=== PATIENT | male | born 1955 | race Caucasian/White ===

== ENCOUNTER 2017-02-24 12:32 | Inpatient (IN) | payer MEDICAID ==
[~2017-02-24] VITALS: Ht 180.3 cm; Wt 78.0 kg
[2017-02-24] MEDS ORDERED: Nitroglycerin Subl 0.4mg tab SL PRN ×2 (13:00→17:45)
[2017-02-24] MEDS ORDERED: Aspirin Baby 81mg ORAL ONE (13:00)
[2017-02-24 13:16] LABS: BASOPHILS % (AUTO) 1.1 % (0.0-2.0); LYMPHOCYTES % (AUTO) 15.9 % (20.0-45.0); MEAN CORPUSCULAR HEMOGLOBIN 33.6 PG (27.0-31.0); MEAN CORPUSCULAR HGB CONC 33.1 G/DL (32.0-36.0); MEAN CORPUSCULAR VOLUME 102 FL (80-99); MEAN PLATELET VOLUME 7.2 FL (6.5-10.1); MONOCYTES % (AUTO) 6.4 % (1.0-10.0); NEUTROPHILS % (AUTO) 73.5 % (45.0-75.0); PLATELET COUNT 235 K/UL (150-450); RED BLOOD COUNT 4.83 M/UL (4.70-6.10); RED CELL DISTRIBUTION WIDTH 11.9 % (11.6-14.8); WHITE BLOOD COUNT 6.7 K/UL (4.8-10.8)
[2017-02-24] MEDS ORDERED: VALIUM2 MG ORAL (13:16)
[2017-02-24] MEDS ORDERED: VICODIN 5-3001 EACH ORAL (13:16)
[2017-02-24 13:25] LABS: INR 0.9 (0.9-1.1); PROTHROMBIN TIME 9.3 SEC (9.30-11.50)
[2017-02-24 13:31] LABS: TROPONIN I < 0.30 ng/mL (<=0.30)
[2017-02-24 13:35] LABS: ALANINE AMINOTRANSFERASE 18 U/L (3-41); ALBUMIN/GLOBULIN RATIO 1.8 (1.0-2.7); ANION GAP 11 (5-15); ASPARTATE AMINO TRANSFERASE 21 U/L (5-40); CALCIUM 9.7 mg/dL (8.6-10.2); CARBON DIOXIDE 27 mEQ/L (20-30); CHLORIDE 101 mEQ/L (98-107); GLOMERULAR FILTRATION RATE > 60 mL/min (>60); HEMOLYSIS 7; POTASSIUM 5.7 mEQ/L (3.4-4.9); SODIUM 139 mEQ/L (135-145); TOTAL PROTEIN 6.6 g/dL (6.6-8.7)
[2017-02-24 13:46] LABS: CKMB 1.7 ng/mL (< 6.7)
[2017-02-24 14:00] VITALS: BP 142/88
--- NOTE | 2017-02-24 15:01 | Emergency Room Report ---
History of Present Illness General Chief Complaint: Chest Pain Source: Patient Present Illness HPI Patient 61-year-old male presented after increased chest tightness. This began approximately one hour prior to arrival to the hospital. Patient stated that he had prior history of hypertension and as well as smoke cigarettes. The patient denies recent drug use. He states that he had onset of pain during rest the pain was described as a squeezing sensation to the center of his chest. The patient had not been vomiting or having any productive cough. He denies any leg pain or swelling. He is unsure of his blood pressure medications. Allergies: Coded Allergies: No Known Allergies (Unverified , 02/24/17) Patient History Past Medical History: see triage record Reviewed Nursing Documentation: PMH: Agreed, PSxH: Agreed Nursing Documentation-PMH Past Medical History: No History, Except For Hx Hypertension: Yes Review of Systems All Other Systems: negative except mentioned in HPI Physical Exam Vital Signs Date Time Temp Pulse Resp B/P (MAP) Pulse Ox O2 Delivery O2 Flow Rate FiO2 02/24/17 12:34 88 18 149/65 98 Room Air Sp02 EP Interpretation: reviewed, normal General Appearance: normal inspection, well appearing, no apparent distress, alert, GCS 15 Head: atraumatic ENT: normal ENT inspection, hearing grossly normal, normal voice Neck: normal inspection, full range of motion, supple, no bony tend Respiratory: normal inspection, lungs clear, normal breath sounds, no respiratory distress, no retraction, no wheezing Cardiovascular #1: regular rate, rhythm, no edema Gastrointestinal: normal inspection, normal bowel sounds, non tender, soft, no guarding, no hernia Genitourinary: no CVA tenderness Musculoskeletal: normal inspection, back normal, normal range of motion Neurologic: normal inspection, alert, oriented x3, responsive, pipe fitter gas pipe III-XII nml as tested, motor strength/tone normal, speech normal Psychiatric: normal inspection, judgement/insight normal, mood/affect normal Skin: normal inspection, normal color, no rash Medical Decision Making Diagnostic Impression: Primary Impression: Chest pain Additional Impression: ACS (acute coronary syndrome) ER Course Patient presented for chest pain. Differential diagnosis included but was not limited to acute coronary syndrome, pulmonary embolism, pneumonia, aortic dissection, shingles, pneumothorax, aortic dissection, esophageal rupture, pericarditis. Because of complexity of patient's case laboratory testing and imaging studies were ordered.Laboratory studies were notable for minimally elevated potassium. This is likely due to lab error. The patient was noted to have initially negative troponin. Patient was noted to be pain-free after aspirin and nitroglycerin. Patient was discussed with Dr. Bob Labs Test 02/24/17 13:00 White Blood Count 6.7 K/UL (4.8-10.8) Red Blood Count 4.83 M/UL (4.70-6.10) Hemoglobin 16.2 G/DL (14.2-18.0) Hematocrit 49.1 % (42.0-52.0) Mean Corpuscular Volume 102 FL (80-99) Mean Corpuscular Hemoglobin 33.6 PG (27.0-31.0) Mean Corpuscular Hemoglobin Concent 33.1 G/DL (32.0-36.0) Red Cell Distribution Width 11.9 % (11.6-14.8) Platelet Count 235 K/UL (150-450) Mean Platelet Volume 7.2 FL (6.5-10.1) Neutrophils (%) (Auto) 73.5 % (45.0-75.0) Lymphocytes (%) (Auto) 15.9 % (20.0-45.0) Monocytes (%) (Auto) 6.4 % (1.0-10.0) Eosinophils (%) (Auto) 3.0 % (0.0-3.0) Basophils (%) (Auto) 1.1 % (0.0-2.0) Prothrombin Time 9.3 SEC (9.30-11.50) Prothromb Time International Ratio 0.9 (0.9-1.1) Activated Partial Thromboplast Time 26 SEC (23-33) Sodium Level 139 mEQ/L (135-145) Potassium Level 5.7 mEQ/L (3.4-4.9) Chloride Level 101 mEQ/L (98-107) Carbon Dioxide Level 27 mEQ/L (20-30) Anion Gap 11 (5-15) Blood Urea Nitrogen 14 mg/dL (7-23) Creatinine 1.0 mg/dL (0.7-1.2) Estimat Glomerular Filtration Rate > 60 mL/min (>60) Glucose Level 108 mg/dL (74-106) Calcium Level 9.7 mg/dL (8.6-10.2) Total Bilirubin 0.3 mg/dL (0.0-1.2) Aspartate Amino Transf (AST/SGOT) 21 U/L (5-40) Alanine Aminotransferase (ALT/SGPT) 18 U/L (3-41) Alkaline Phosphatase 69 U/L (40-129) Total Creatine Kinase 70 U/L (38-174) Creatine Kinase MB 1.7 ng/mL (< 6.7) Creatine Kinase MB Relative Index 2.4 Troponin I < 0.30 ng/mL (<=0.30) Pro-B-Type Natriuretic Peptide 25 pg/mL (0-125) Total Protein 6.6 g/dL (6.6-8.7) Albumin 4.3 g/dL (3.5-5.2) Globulin 2.3 g/dL Albumin/Globulin Ratio 1.8 (1.0-2.7) Serum Alcohol < 10 mg/dL EKG Diagnostic Results Rate: normal Rhythm: NSR ST Segments: no acute changes ASA given to the pt in ED: Yes Rhythm Strip Diag. Results EP Interpretation: yes Rhythm: NSR, no PVC's, no ectopy Last Vital Signs Date Time Temp Pulse Resp B/P (MAP) Pulse Ox O2 Delivery O2 Flow Rate FiO2 02/24/17 13:13 94 16 02/24/17 13:07 144/85 02/24/17 12:34 98 Room Air Status: improved Disposition: XFER [facility] Condition: Stable Referrals: PREFERRED [facility],REFERRING (PCP) Ilan Pablo Feb 24, 2017 15:01
[2017-02-24 16:00] VITALS: BP 142/86
[2017-02-24] MEDS ORDERED: htn med (16:40)
[2017-02-24 17:07] VITALS: BP 147/93
[2017-02-24 17:31] LABS: KETONES,URINE NEGATIVE (NEGATIVE); LEUKOCYTE ESTERASE ,URINE NEGATIVE (NEGATIVE); NITRITE,URINE NEGATIVE (NEGATIVE); PH,URINE 8 (4.5-8.0); PROTEIN,URINE NEGATIVE (NEGATIVE); UROBILINOGEN,URINE NORMAL MG/DL (0.0-1.0)
[2017-02-24] MEDS ORDERED: Enalaprilat 2.5mg/2ml Inj IV PRN (17:45)
[2017-02-24] MEDS ORDERED: Diltiazem 25mg/5ml IV PRN (17:45)
[2017-02-24] MEDS ORDERED: Sodium Polystyrene Sulfonate 15gm Powder ORAL ONE (17:45)
[2017-02-24] MEDS ORDERED: Ketorolac 30mg Inj IV PRN (17:45)
[2017-02-24] MEDS ORDERED: Morphine Sulfate 2mg/ml Inj IVP PRN (17:45)
[2017-02-24] MEDS ORDERED: DuoNeb 0.5-3(2.5)mg/3ml neb HHN PRN (17:45)
[2017-02-24] MEDS ORDERED: Miralax 17gm pkt ORAL PRN (17:45)
[2017-02-24 17:57] LABS: APPEARANCE,URINE CLEAR
[2017-02-24 20:14] VITALS: BP 145/93
[2017-02-24 20:48] LABS: TROPONIN I < 0.30 ng/mL (<=0.30)
[2017-02-24] MEDS: NovoLOG Insulin Flexpen SUBQ SCH (22:00)
[2017-02-24] MEDS: Heparin 5000 units/ml inj SUBQ SCH (22:00)
[2017-02-25] VITALS (7 sets, daily range): BP systolic 121–138; BP diastolic 71–96
[2017-02-25] MEDS: Heparin 5000 units/ml inj SUBQ SCH ×2 (05:56→13:34)
[2017-02-25] MEDS: NovoLOG Insulin Flexpen SUBQ SCH ×3 (06:11→16:30)
[2017-02-25 07:36] LABS: BASOPHILS % (AUTO) 1.1 % (0.0-2.0); EOSINOPHILS % (AUTO) 4.2 % (0.0-3.0); LYMPHOCYTES % (AUTO) 24.4 % (20.0-45.0); MEAN CORPUSCULAR HGB CONC 33.6 G/DL (32.0-36.0); MEAN CORPUSCULAR VOLUME 101 FL (80-99); MEAN PLATELET VOLUME 6.7 FL (6.5-10.1); MONOCYTES % (AUTO) 7.8 % (1.0-10.0); NEUTROPHILS % (AUTO) 62.5 % (45.0-75.0); PLATELET COUNT 200 K/UL (150-450); RED CELL DISTRIBUTION WIDTH 11.8 % (11.6-14.8); WHITE BLOOD COUNT 5.1 K/UL (4.8-10.8)
[2017-02-25 07:50] LABS: INR 0.9 (0.9-1.1); PROTHROMBIN TIME 9.4 SEC (9.30-11.50)
[2017-02-25 07:57] LABS: TROPONIN I < 0.30 ng/mL (<=0.30)
[2017-02-25 08:00] LABS: CHOLESTEROL/HDL RATIO 3.3 (3.3-4.4); CRP QUANT 2.4 mg/dL (< 0.5)
[2017-02-25 08:04] LABS: THYROID STIMULATING HORMONE 1.57 uIU/mL (0.300-4.500)
[2017-02-25] MEDS ORDERED: Aspirin Baby 81mg ORAL SCH (09:00)
--- NOTE | 2017-02-25 11:19 | Diagnostic Imaging Report ---
Indication: SOB Technique: One view of the chest Comparison: none Findings: Lungs and pleural spaces are clear. Heart size is normal. Impression: No acute process
[2017-02-25 11:54] LABS: ANION GAP 17 (5-15); CALCIUM 8.8 mg/dL (8.6-10.2); CARBON DIOXIDE 21 mEQ/L (20-30); CHLORIDE 103 mEQ/L (98-107); CREATININE 0.9 mg/dL (0.7-1.2); GLOMERULAR FILTRATION RATE > 60 mL/min (>60); HEMOLYSIS 9; SODIUM 141 mEQ/L (135-145)
--- NOTE | 2017-02-25 12:42 | History and Physical ---
History of Present Illness General Date patient seen: Feb 24, 2017 Reason for Hospitalization: Chest Pain Present Illness HPI 61-year-old male with hx of HTN, smoking presented to [facility] with CC of increased chest tightness. This began approximately one hour prior to arrival to the hospital. He states that he had onset of pain during rest the pain was described as a squeezing sensation to the center of his chest. He denies any leg pain or swelling. He is unsure of his blood pressure medications. His is admitted to telemetry for further evaluation. Allergies: Coded Allergies: No Known Allergies (Unverified , 02/24/17) Medication History Scheduled PRN Diazepam* (Valium*), Unknown Dose ORAL TID PRN for ANXIETY, (Reported) Hydrocodone Bit/Acetaminophen (Vicodin 5-300 Mg Tablet), Unknown Dose ORAL Q4H PRN for For Pain, (Reported) Miscellaneous Medications [htn med ], (Reported) Patient History Healthcare decision maker N Resuscitation status Full Code Advanced Directive on File Past Medical/Surgical History Past Medical/Surgical History: (1) History of smoking Review of Systems Constitutional: Reports: no symptoms Eye: Reports: no symptoms Physical Exam General Appearance: WD/WN, alert Lines, tubes and drains: peripheral HEENT: normocephalic, atraumatic Neck: non-tender, supple Respiratory/Chest: chest wall non-tender, normal breath sounds Cardiovascular/Chest: normal peripheral pulses, normal rate Last 24 Hour Vital Signs Date Time Temp Pulse Resp B/P (MAP) Pulse Ox O2 Delivery O2 Flow Rate FiO2 02/25/17 11:39 97.3 73 18 138/90 97 Room Air 02/25/17 08:00 76 02/25/17 08:00 97.0 78 18 121/71 95 Room Air 02/25/17 05:14 97.5 79 20 131/94 99 Room Air 02/25/17 05:13 97.5 79 20 131/94 99 Room Air 02/25/17 04:00 81 02/25/17 04:00 97.5 79 20 131/94 99 Room Air 02/25/17 00:00 97.9 81 20 136/96 95 Room Air 02/25/17 00:00 84 02/24/17 20:14 97.9 82 20 145/93 95 Room Air 02/24/17 20:09 94 02/24/17 17:07 97.5 86 22 147/93 98 Room Air 02/24/17 16:55 81 19 144/79 98 Room Air 02/24/17 16:00 16 142/86 98 Room Air 02/24/17 14:00 16 142/88 98 Room Air 02/24/17 13:13 94 16 02/24/17 13:07 144/85 Laboratory Tests Test 02/24/17 13:00 02/24/17 16:50 02/24/17 20:25 02/25/17 06:40 White Blood Count 6.7 K/UL (4.8-10.8) 5.1 K/UL (4.8-10.8) Red Blood Count 4.83 M/UL (4.70-6.10) 4.40 M/UL (4.70-6.10) L Hemoglobin 16.2 G/DL (14.2-18.0) 14.9 G/DL (14.2-18.0) Hematocrit 49.1 % (42.0-52.0) 44.4 % (42.0-52.0) Mean Corpuscular Volume 102 FL (80-99) H 101 FL (80-99) H Mean Corpuscular Hemoglobin 33.6 PG (27.0-31.0) H 34.0 PG (27.0-31.0) H Mean Corpuscular Hemoglobin Concent 33.1 G/DL (32.0-36.0) 33.6 G/DL (32.0-36.0) Red Cell Distribution Width 11.9 % (11.6-14.8) 11.8 % (11.6-14.8) Platelet Count 235 K/UL (150-450) 200 K/UL (150-450) Mean Platelet Volume 7.2 FL (6.5-10.1) 6.7 FL (6.5-10.1) Neutrophils (%) (Auto) 73.5 % (45.0-75.0) 62.5 % (45.0-75.0) Lymphocytes (%) (Auto) 15.9 % (20.0-45.0) L 24.4 % (20.0-45.0) Monocytes (%) (Auto) 6.4 % (1.0-10.0) 7.8 % (1.0-10.0) Eosinophils (%) (Auto) 3.0 % (0.0-3.0) 4.2 % (0.0-3.0) H Basophils (%) (Auto) 1.1 % (0.0-2.0) 1.1 % (0.0-2.0) Prothrombin Time 9.3 SEC (9.30-11.50) 9.4 SEC (9.30-11.50) Prothromb Time International Ratio 0.9 (0.9-1.1) 0.9 (0.9-1.1) Activated Partial Thromboplast Time 26 SEC (23-33) 28 SEC (23-33) Sodium Level 139 mEQ/L (135-145) 141 mEQ/L (135-145) Potassium Level 5.7 mEQ/L (3.4-4.9) H 4.0 mEQ/L (3.4-4.9) Chloride Level 101 mEQ/L (98-107) 103 mEQ/L (98-107) Carbon Dioxide Level 27 mEQ/L (20-30) 21 mEQ/L (20-30) Anion Gap 11 (5-15) 17 (5-15) H Blood Urea Nitrogen 14 mg/dL (7-23) 15 mg/dL (7-23) Creatinine 1.0 mg/dL (0.7-1.2) 0.9 mg/dL (0.7-1.2) Estimat Glomerular Filtration Rate > 60 mL/min (>60) > 60 mL/min (>60) Glucose Level 108 mg/dL (74-106) H 93 mg/dL (74-106) Calcium Level 9.7 mg/dL (8.6-10.2) 8.8 mg/dL (8.6-10.2) Total Bilirubin 0.3 mg/dL (0.0-1.2) Aspartate Amino Transf (AST/SGOT) 21 U/L (5-40) Alanine Aminotransferase (ALT/SGPT) 18 U/L (3-41) Alkaline Phosphatase 69 U/L (40-129) Total Creatine Kinase 70 U/L (38-174) Creatine Kinase MB 1.7 ng/mL (< 6.7) Creatine Kinase MB Relative Index 2.4 Troponin I < 0.30 ng/mL (<=0.30) < 0.30 ng/mL (<=0.30) < 0.30 ng/mL (<=0.30) Pro-B-Type Natriuretic Peptide 25 pg/mL (0-125) Total Protein 6.6 g/dL (6.6-8.7) Albumin 4.3 g/dL (3.5-5.2) Globulin 2.3 g/dL Albumin/Globulin Ratio 1.8 (1.0-2.7) Serum Alcohol < 10 mg/dL Urine Color Pale yellow Urine Appearance Clear Urine pH 8 (4.5-8.0) Urine Specific [place] 1.010 (1.005-1.035) Urine Protein Negative (NEGATIVE) Urine Glucose (UA) Negative (NEGATIVE) Urine Ketones Negative (NEGATIVE) Urine Occult Blood Negative (NEGATIVE) Urine Nitrite Negative (NEGATIVE) Urine Bilirubin Negative (NEGATIVE) Urine Urobilinogen Normal MG/DL (0.0-1.0) Urine Leukocyte Esterase Negative (NEGATIVE) Urine Opiates Screen Positive (NEGATIVE) H Urine Barbiturates Screen Negative (NEGATIVE) Phencyclidine (PCP) Screen Negative (NEGATIVE) Urine Amphetamines Screen Negative (NEGATIVE) Urine Benzodiazepines Screen Positive (NEGATIVE) H Urine Cocaine Screen Negative (NEGATIVE) Urine Marijuana (THC) Screen Negative (NEGATIVE) C-Reactive Protein, Quantitative 2.4 mg/dL (< 0.5) H Triglycerides Level 150 mg/dL (< 150) Cholesterol Level 188 mg/dL (< 200) LDL Cholesterol 101 mg/dL (60-99) H HDL Cholesterol 57 mg/dL (> 60) Cholesterol/HDL Ratio 3.3 (3.3-4.4) Thyroid Stimulating Hormone (TSH) 1.570 uIU/mL (0.300-4.500) Height (Feet): 5 Height (Inches): 11.00 Weight (Pounds): 172 Medications Current Medications Medications (Trade) Dose Ordered Sig/Kyle Route PRN Reason Start Time Stop Time Status Last Admin Dose Admin Acetaminophen (Tylenol) 650 mg Q4H PRN ORAL FEVER 02/24/17 17:45 03/26/17 17:44 Albuterol/ Ipratropium (DuoNeb 0.5-3(2.5)mg/3ml) 3 ml EVERY 4 HOURS PRN HHN Shortness of Breath 02/24/17 17:45 03/01/17 17:44 Aspirin (ASA) 162 mg DAILY ORAL 02/25/17 09:00 03/27/17 08:59 02/25/17 08:23 Dextrose (Dextrose 50%) STAT PRN IV Hypoglycemia 02/24/17 17:45 03/26/17 17:44 Diltiazem HCl (Cardizem) 10 mg EVERY HOUR PRN IV heart rate more than 120, 02/24/17 17:45 03/26/17 17:44 Enalaprilat (Vasotec) 2.5 mg EVERY 6 HOURS PRN IV sbp more than 160 02/24/17 17:45 03/26/17 17:44 Heparin Sodium (Porcine) (Heparin 5000 units/ml) 5,000 units EVERY 8 HOURS SUBQ 02/24/17 22:00 03/26/17 21:59 02/25/17 05:56 Insulin Aspart (NovoLOG) BEFORE MEALS AND HS SUBQ 02/24/17 21:00 03/26/17 20:59 Ketorolac Tromethamine (Toradol 30mg) 30 mg Q6HR PRN IV moderate pain ( 4-6) 02/24/17 17:45 03/01/17 17:44 Morphine Sulfate (Morphine Sulfate) 2 mg EVERY 4 HOURS PRN IVP severe Pain (Pain Scale 7-10) 02/24/17 17:45 03/03/17 17:44 Nitroglycerin (Ntg) 0.4 mg Q5M PRN SL Prn Chest Pain 02/24/17 13:00 03/26/17 12:59 02/24/17 13:07 Nitroglycerin (Ntg) 0.4 mg q 5 mins PRN SL Prn Chest Pain 02/24/17 17:45 03/26/17 17:44 Ondansetron HCl (Zofran) 4 mg Q6H PRN IVP Nausea & Vomiting 02/24/17 17:45 03/26/17 17:44 Polyethylene Glycol (Miralax) 17 gm DAILYPRN PRN ORAL Constipation 02/24/17 17:45 03/26/17 17:44 Temazepam (Restoril) 15 mg HSPRN PRN ORAL Insomnia 02/24/17 17:45 03/03/17 17:44 Assessment/Plan Problem List: (1) ACS (acute coronary syndrome) ICD Codes: I24.9 - Acute ischemic heart disease, unspecified SNOMED: 074677663 (2) GERD (gastroesophageal reflux disease) ICD Codes: K21.9 - Gastro-esophageal reflux disease without esophagitis SNOMED: 463598435 (3) Costochondritis ICD Codes: M94.0 - Chondrocostal junction syndrome [Tietze] SNOMED: 04392198 (4) History of smoking ICD Codes: Z87.891 - Personal history of nicotine dependence SNOMED: 06929137715190535 Assessment/Plan serial ekg, troponin, echo cardiology to see symptomatic treatment UNA YOUNG Feb 25, 2017 12:42
--- NOTE | 2017-02-25 12:49 | Diagnostic Imaging Report ---
APPROVED REPORT CPT Code: 70432 Present Symptoms Comments: Leg Pain Chest pain BILATERAL: Imaging reveals a patent deep venous system bilaterally. There is no evidence of thrombus within the femoral, popliteal or tibial segments. The greater saphenous veins are also within normal limits. Doppler indicates normal spontaneous flow within these segments.
--- NOTE | 2017-02-25 12:53 | Pulmonology Progress Note ---
Assessment/Plan Problems: (1) ACS (acute coronary syndrome) (2) GERD (gastroesophageal reflux disease) (3) Costochondritis (4) History of smoking (5) Diastolic dysfunction Assessment/Plan no more chest pain stress test and cardiac consult pending add link inhibitors, he used to take Benicar Subjective ROS Limited/Unobtainable: No Interval Events: no chest pain Allergies: Coded Allergies: No Known Allergies (Unverified , 02/24/17) Objective Last 24 Hour Vital Signs Date Time Temp Pulse Resp B/P (MAP) Pulse Ox O2 Delivery O2 Flow Rate FiO2 02/25/17 11:39 97.3 73 18 138/90 97 Room Air 02/25/17 08:00 76 02/25/17 08:00 97.0 78 18 121/71 95 Room Air 02/25/17 05:14 97.5 79 20 131/94 99 Room Air 02/25/17 05:13 97.5 79 20 131/94 99 Room Air 02/25/17 04:00 81 02/25/17 04:00 97.5 79 20 131/94 99 Room Air 02/25/17 00:00 97.9 81 20 136/96 95 Room Air 02/25/17 00:00 84 02/24/17 20:14 97.9 82 20 145/93 95 Room Air 02/24/17 20:09 94 02/24/17 17:07 97.5 86 22 147/93 98 Room Air 02/24/17 16:55 81 19 144/79 98 Room Air 02/24/17 16:00 16 142/86 98 Room Air 02/24/17 14:00 16 142/88 98 Room Air 02/24/17 13:13 94 16 02/24/17 13:07 144/85 General Appearance: WD/WN HEENT: normocephalic, atraumatic Cardiovascular: normal peripheral pulses, normal rate Abdomen: normal bowel sounds, no organomegaly Extremities: no cyanosis Skin: no rash, no ulcers Laboratory Tests 02/24/17 13:00: White Blood Count 6.7, Red Blood Count 4.83, Hemoglobin 16.2, Hematocrit 49.1, Mean Corpuscular Volume 102H, Mean Corpuscular Hemoglobin 33.6H, Mean Corpuscular Hemoglobin Concent 33.1, Red Cell Distribution Width 11.9, Platelet Count 235, Mean Platelet Volume 7.2, Neutrophils (%) (Auto) 73.5, Lymphocytes (% ) (Auto) 15.9L, Monocytes (%) (Auto) 6.4, Eosinophils (%) (Auto) 3.0, Basophils (%) (Auto) 1.1, Prothrombin Time 9.3, Prothromb Time International Ratio 0.9, Activated Partial Thromboplast Time 26, Sodium Level 139, Potassium Level 5.7H, Chloride Level 101, Carbon Dioxide Level 27, Anion Gap 11, Blood Urea Nitrogen 14, Creatinine 1.0, Estimat Glomerular Filtration Rate > 60, Glucose Level 108H , Calcium Level 9.7, Total Bilirubin 0.3, Aspartate Amino Transf (AST/SGOT) 21, Alanine Aminotransferase (ALT/SGPT) 18, Alkaline Phosphatase 69, Total Creatine Kinase 70, Creatine Kinase MB 1.7, Creatine Kinase MB Relative Index 2.4, Troponin I < 0.30, Pro-B-Type Natriuretic Peptide 25, Total Protein 6.6, Albumin 4.3, Globulin 2.3, Albumin/Globulin Ratio 1.8, Serum Alcohol < 10 02/24/17 16:50: Urine Color Pale yellow, Urine Appearance Clear, Urine pH 8, Urine Specific [place] 1.010, Urine Protein Negative, Urine Glucose (UA) Negative, Urine Ketones Negative, Urine Occult Blood Negative, Urine Nitrite Negative, Urine Bilirubin Negative, Urine Urobilinogen Normal, Urine Leukocyte Esterase Negative , Urine Opiates Screen PositiveH, Urine Barbiturates Screen Negative, Phencyclidine (PCP) Screen Negative, Urine Amphetamines Screen Negative, Urine Benzodiazepines Screen PositiveH, Urine Cocaine Screen Negative, Urine Marijuana (THC) Screen Negative 02/24/17 20:25: Troponin I < 0.30 02/25/17 06:40: White Blood Count 5.1, Red Blood Count 4.40L, Hemoglobin 14.9, Hematocrit 44.4, Mean Corpuscular Volume 101H, Mean Corpuscular Hemoglobin 34.0H, Mean Corpuscular Hemoglobin Concent 33.6, Red Cell Distribution Width 11.8, Platelet Count 200, Mean Platelet Volume 6.7, Neutrophils (%) (Auto) 62.5, Lymphocytes (% ) (Auto) 24.4, Monocytes (%) (Auto) 7.8, Eosinophils (%) (Auto) 4.2H, Basophils (%) (Auto) 1.1, Prothrombin Time 9.4, Prothromb Time International Ratio 0.9, Activated Partial Thromboplast Time 28, Sodium Level 141, Potassium Level 4.0, Chloride Level 103, Carbon Dioxide Level 21, Anion Gap 17H, Blood Urea Nitrogen 15, Creatinine 0.9, Estimat Glomerular Filtration Rate > 60, Glucose Level 93, Calcium Level 8.8, Troponin I < 0.30, C-Reactive Protein, Quantitative 2.4H, Triglycerides Level 150, Cholesterol Level 188, LDL Cholesterol 101H, HDL Cholesterol 57, Cholesterol/HDL Ratio 3.3, Thyroid Stimulating Hormone (TSH) 1.570 Current Medications Medications (Trade) Dose Ordered Sig/Kyle Route PRN Reason Start Time Stop Time Status Last Admin Dose Admin Acetaminophen (Tylenol) 650 mg Q4H PRN ORAL FEVER 02/24/17 17:45 03/26/17 17:44 Albuterol/ Ipratropium (DuoNeb 0.5-3(2.5)mg/3ml) 3 ml EVERY 4 HOURS PRN HHN Shortness of Breath 02/24/17 17:45 03/01/17 17:44 Aspirin (ASA) 162 mg DAILY ORAL 02/25/17 09:00 03/27/17 08:59 02/25/17 08:23 Dextrose (Dextrose 50%) STAT PRN IV Hypoglycemia 02/24/17 17:45 03/26/17 17:44 Diltiazem HCl (Cardizem) 10 mg EVERY HOUR PRN IV heart rate more than 120, 02/24/17 17:45 03/26/17 17:44 Enalaprilat (Vasotec) 2.5 mg EVERY 6 HOURS PRN IV sbp more than 160 02/24/17 17:45 03/26/17 17:44 Heparin Sodium (Porcine) (Heparin 5000 units/ml) 5,000 units EVERY 8 HOURS SUBQ 02/24/17 22:00 03/26/17 21:59 02/25/17 05:56 Insulin Aspart (NovoLOG) BEFORE MEALS AND HS SUBQ 02/24/17 21:00 03/26/17 20:59 Ketorolac Tromethamine (Toradol 30mg) 30 mg Q6HR PRN IV moderate pain ( 4-6) 02/24/17 17:45 03/01/17 17:44 Morphine Sulfate (Morphine Sulfate) 2 mg EVERY 4 HOURS PRN IVP severe Pain (Pain Scale 7-10) 02/24/17 17:45 03/03/17 17:44 Nitroglycerin (Ntg) 0.4 mg Q5M PRN SL Prn Chest Pain 02/24/17 13:00 03/26/17 12:59 02/24/17 13:07 Nitroglycerin (Ntg) 0.4 mg q 5 mins PRN SL Prn Chest Pain 02/24/17 17:45 03/26/17 17:44 Ondansetron HCl (Zofran) 4 mg Q6H PRN IVP Nausea & Vomiting 02/24/17 17:45 03/26/17 17:44 Polyethylene Glycol (Miralax) 17 gm DAILYPRN PRN ORAL Constipation 02/24/17 17:45 03/26/17 17:44 Temazepam (Restoril) 15 mg HSPRN PRN ORAL Insomnia 02/24/17 17:45 03/03/17 17:44 UNA YOUNG Feb 25, 2017 12:53
[2017-02-25] MEDS ORDERED: Lisinopril 10mg tab ORAL SCH (13:30)
--- NOTE | 2017-02-25 13:56 | Cardiology Report ---
APPROVED REPORT EXAM: Two-dimensional and M-mode echocardiogram with Doppler and color Doppler. INDICATION LV function M-Mode DIMENSIONS IVSd1.0 (0.7-1.1cm)Left Atrium (MM)3.3 (1.6-4.0cm) LVDd4.2 (3.5-5.6cm)Aortic Root3.4 (2.0-3.7cm) PWd1.2 (0.7-1.1cm)Aortic Cusp Exc.1.8 (1.5-2.0cm) LVDs2.2 (2.5-4.0cm) PWs2.0 cm Technically difficult study due to poor apical windows. Normal left ventricular chamber size, systolic function and wall motion to extent visualized. Left ventricular ejection fraction estimated to be 65 %. Study quality precludes accurate assessment of regional wall motion. No evidence of left ventricular hypertrophy. No evidence of pericardial effusion. All other cardiac chamber sizes are within normal limits. Focal aortic valve sclerosis with adequate cusp excursion. Thickened mitral valve leaflets with normal excursion. Mitral annulus and aortic root calcification. Pulmonic valve not well visualized. Normal tricuspid valve structure. IVC at normal size with physiologic collapse. A color flow and spectral Doppler study was performed and revealed: Trace mitral regurgitation. Mitral diastolic velocities suggest reduced left ventricular relaxation c/w mild LV diastolic dysfunction (Grade I ). Trace tricuspid regurgitation. Tricuspid systolic velocities suggests peak right ventricular systolic pressure of 10 mmHg.
[2017-02-25] MEDS ORDERED: NS 275ml ONE (14:25)
--- NOTE | 2017-02-26 12:24 | Discharge Summary ---
Discharge Summary Hospital Course Date of Admission Feb 24, 2017 at 16:56 Date of Discharge Feb 25, 2017 at 16:50 Admitting Diagnosis ACS HPI Alvaro Grande is a 61 year old male who was admitted on Feb 24, 2017 at 16: 56 for Acute Coronary Syndrome Hospital Course dc summary #[id number] Discharge Medications Continued Medications: Diazepam* (Valium*) 2 Mg Tablet Unknown Dose ORAL TID PRN for ANXIETY, #30 TAB 0 Refills Hydrocodone Bit/Acetaminophen (Vicodin 5-300 Mg Tablet) 1 Each Tablet Unknown Dose ORAL Q4H PRN for For Pain, #30 TAB 0 Refills [htn med ] () Discharge Condition Upon Discharge: stable Discharge Disposition Patient was discharged to Home (01) Discharge Diagnoses: Discharge Instructions Discharge Instructions Special Instructions I have been assigned to complete a D/C Summary on this account. I was not involved in the patient management Melia Allan NP ([place]) Feb 26, 2017 12:24
--- NOTE | 2017-02-27 09:32 | Discharge Summary 2 SIG ---
DATE OF ADMISSION: 02/24/2017 DATE OF DISCHARGE: 02/25/2017 Reason For Admission: 61-year-old male presented with complaint of chest pain. The patient with prior history of hypertension, smoker, sciatica, and herniated disc. Initial troponin was negative. EKG showed normal sinus rhythm. Pro BNP 25. Laboratory workup was otherwise unremarkable. Chest x-ray revealed no acute cardiopulmonary pathology. Urine toxicology screen was positive for opiates and benzodiazepine. The patient was admitted for further management. ADMITTING DIAGNOSES: 1. Chest pain, rule out acute coronary syndrome. 2. Hypertension. 3. Smoker. Hospital Course: The patient was admitted to telemetry floor. Serial troponin were negative. EKG revealed no acute ischemic changes. Therefore, the patient was ruled out for acute NH as per acute NH protocol. Echocardiogram revealed preserved ejection fraction of 65%, right ventricular systolic pressure of 10, no left ventricular hypertrophy. Venous duplex of bilateral lower extremities was negative. Lipid panel revealed borderline LDL of 101, otherwise all negative. The patient was counseled on low-fat, low-cholesterol diet. The patient was started on aspirin. Blood pressure was managed with current regimen, was stable. Chest pain appeared to be noncardiac, likely possible costochondritis, possible GERD. The patient was cleared for discharge and follow up with primary medical doctor as outpatient. Due to the rapid and unexpected improvement in patient's condition, the patient was discharged in one day. FINAL DIAGNOSES: 1. Noncardiac chest pain. 2. Probable gastroesophageal reflux disease. 3. Possible costochondritis. 4. Smoker. 5. Hypertension. DISCHARGE MEDICATIONS: See medication reconciliation list. Discharge Instructions: The patient was discharged home. Follow up with primary medical doctor. Leyla Cueva M.D. I have been assigned to dictate discharge summary on this account and I was not involved in the patient's management. Melia LarsonSamaritan Medical CenterCorrie N.P. : FLAVIA JOB#: [id number] CC: ANJUM
== END 2017-02-25 16:50 | disposition home or self-care (01) | DRG 203 ==
LOC: EMR 13:15 → EDBEDREQ 16:38 → 2W 16:56 → 2E 16:59
DX: M94.0 Chondrocostal junction syndrome [Tietze] (principal); I10 Essential (primary) hypertension; K21.9 Gastro-esophageal reflux disease without esophagitis; Z87.891 Personal history of nicotine dependence; M54.30 Sciatica, unspecified side; R07.89 Other chest pain
CPT/HCPCS: 36415; 71010; 80048; 80053; 80061; 80300; 80329; 81003; 82550; 82553; 82962; 83880; 84443; 84484; 85025; 85610; 85730; 86140; 93005; 93017; 93306; 93970; 99285; J1815